=== PATIENT | male | born 1990 | race Two or more races ===

== ENCOUNTER 2024-09-30 14:20 | Emergency (ER) | payer BC, OTHER ==
[~2024-09-30] VITALS: Ht 182.9 cm; Wt 90.3 kg
[2024-09-30 14:20] VITALS: BP 139/82; TEMP 98.3
--- NOTE | 2024-09-30 14:31 | ECG ---
[facility] Test Date: 2024-09-30 Test Time: 14:26:55 Pat Name: LOLA PLUMMER Department: [facility] ED Patient ID: [id number] Room: Gender: M [employer] Operator: GP : 1990 Requested By: PAUL CACERES Order Number: [id number] Reading MD: Carlo Trammell Measurements Intervals [place] Rate: 65 P: 40 WI: 128 QRS: 66 QRSD: 83 T: 52 QT: 403 QTc: 419 Interpretive Statements Sinus rhythm Baseline wander in lead(s) II,III,aVF Electronically Signed On 10-02-2024 17:50:28 PDT by Carlo Trammell Please click the below link to view image of tracing.
--- NOTE | 2024-09-30 14:33 | ED.PDOC ---
HPI Comments 34 y.o male with PMHx of ADHD, presents to the ED for a chief complaint of left sided chest pain radiating to his left arm that started 20 minutes prior to arrival. Patient reports pain presented while driving, described as a tightness sensation that is constant. Patient initially had SOB but since has resolved on its own. He denies any other symptoms or pain. Time Seen by MD: 14:27 Reviewed Notes: Nurses Notes, Medications, Allergies Allergies: Coded Allergies: NO KNOWN ALLERGIES (Unverified , 09/30/24) Information Source: Patient Mode of Arrival: Ambulatory Severity: Moderate Timing: Minutes (20) Duration: Since onset Location: Chest (L) Radiation: Arm (L) Quality: Tightness Onset: At Rest Cardiac Risk Factors: Family History PE Risk Factors: None History of: None Modifying Factors: Nothing Associated Signs and Symptoms: SOB Past Medical History PAST MEDICAL HISTORY: Denies Past Medical History (Other): ADHD Surgical History: Denies all surgeries Family History Family History: Family hx of heart eileen Social History Smoker: Non-Smoker Alcohol: Occasionally Drugs: Denies Drug Use Lives In: Home Constitutional: denies: chills, diaphoresis, fatigue, fever, malaise, sweats, weakness, others EENTM: denies: blurred vision, double vision, ear bleeding, ear discharge, ear drainage, ear pain, ear ringing, eye pain, eye redness, hearing loss, mouth pain, mouth swelling, nasal discharge, nose bleeding, nose congestion, nose pain, photophobia, tearing, throat pain, throat swelling, voice changes, others Respiratory: reports: shortness of breath; denies: cough, hemoptysis, orthopnea, SOB at rest, SOB with excertion, stridor, wheezing, others Cardiovascular: reports: chest pain, left arm pain; denies: dizzy spells, diaphoresis, Dyspnea on exertion, edema, irregular heart beat, lightheadedness, palpitations, PND, syncope, others Gastrointestinal: denies: abdomen distended, abdominal pain, blood streaked bowels, constipated, diarrhea, dysphagia, difficulty swallowing, hematemesis, melena, nausea, poor appetite, poor fluid intake, rectal bleeding, rectal pain, vomiting, others Genitourinary: denies: burning, dysuria, flank pain, frequency, hematuria, incontinence, penile discharge, penile sore, pain, testicle pain, testicle swelling, urgency, others Neurological: denies: dizziness, fainting, headache, left sided numbness, left sided weakness, numbness, paresthesia, pre-existing deficit, right sided numbness, right sided weakness, seizure, speech problems, tingling, tremors, w eakness, others Musculoskeletal: denies: back pain, gout, joint pain, joint swelling, muscle pain, muscle stiffness, neck pain, others Integumetry: denies: bruises, change in color, change in hair/nails, dryness, laceration, lesions, lumps, rash, wounds, others Allergic/Immunocompromised: denies: Difficulty Healing, Frequent Infections, Hives, Itching, others Hematologic/Lymphatic: denies: anemia, blood clots, easy bleeding, easy bruising, swollen glands, others Endocrine: denies: excessive hunger, excessive sweating, excessive thirst, excessive urination, flushing, intolerance to cold, intolerance to heat, unexplained weight gain, unexplained weight loss, others Psychiatric: denies: anxiety, bipolar disorder, depression, hopeless, panic disorder, schizophrenia, sleepless, suicidal, others All Other Systems: Reviewed and Negative Physical Exam General Appearance: No Apparent Distress HEENT: Normal ENT Inspection, Pharynx Normal, TMs Normal Neck: Full Range of Motion, Non-Tender, Normal, Normal Inspection Respiratory: Chest Non-Tender, Lungs Clear, No Accessory Muscle Use, No Respiratory Distress, Normal Breath Sounds Cardiovascular: No Edema, No JVD, No Murmur, No Gallop, Normal Peripheral Pulses, Regular Rate/Rhythm Breast Exam: Deferred Gastrointestinal: No Organomegaly, Non Tender, No Pulsatile Mass, Normal Bowel Sounds, Soft Genitalia: Deferred Pelvic: Deferred Rectal: Deferred Extremities: No calf tenderness, Normal capillary refill, Normal inspection, Normal range of motion, Non-tender, No pedal edema Musculoskeletal : Apperance: Normal Neurologic: Alert, vegetable thinner II-XII nml as Tested, No Motor Deficits, Normal Affect, Normal Mood, No Sensory Deficits Cerebellar Function: Normal Reflexes: Normal Skin: Dry, Normal Color, Warm Lymphatic: No Adenopathy EKG EKG : Pulse Rate (adult): 65 [place]: Normal Cardiac Rhythm: NSR ST: Nonsp Was a procedure done? Was a procedure done?: No CP Differential Dx Differential Diagnosis: N/A Differential Diagnosis: Angina, Chest Wall Pain, Cholelithiasis, Costochondritis, Myocardial Infarction, Pericarditis X-Ray, Labs, Meds, VS Vital Signs Date Time Temp Pulse Resp B/P (MAP) Pulse Ox O2 Delivery O2 Flow Rate FiO2 09/30/24 15:59 18 98 Room Air* 0 21 09/30/24 15:54 68 09/30/24 14:33 65 09/30/24 14:26 65 09/30/24 14:20 98.3 77 16 139/82 (101) 98 98.3 09/30/24 14:20 98.3 77 16 139/82 (101) 98 98.3 Lab Test 09/30/24 15:29 09/30/24 15:20 09/30/24 14:38 Range/Units Troponin I High Sensitivity 3 L < 3 L </=54 ng/L Urine Color Light-yellow Yellow Urine Clarity Clear Clear Urine pH 7.5 5.0-9.0 Urine Specific [place] 1.016 1.001-1.035 Urine Protein Negative Negative Urine Ketones Negative Negative Urine Blood Negative Negative /uL Urine Nitrite Negative Negative Urine Bilirubin Negative Negative Urine Urobilinogen Normal Negative mg/dL Urine Leukocyte Esterase Negative Negative /uL Urine RBC <1 0 - 3 /hpf Urine Microscopic WBC < 1 0-3 /HPF Urine Squamous Epithelial Cells None seen <5 /hpf Urine Bacteria None seen None Seen /hpf Urine Glucose Normal Normal mg/dL Urine Opiates Screen Neg NEGATIVE Urine Fentanyl Screen Neg NEGATIVE Urine Barbiturates Screen Neg NEGATIVE Urine Phencyclidine Screen Neg NEGATIVE Urine Amphetamines Screen Neg NEGATIVE Urine Benzodiazepines Screen Neg NEGATIVE Urine Cocaine Screen Neg NEGATIVE Urine Cannabinoids Screen Neg NEGATIVE White Blood Count 6.2 4.4-10.8 10^3/uL Red Blood Count 5.06 4.5-5.90 10^6/uL Hemoglobin 15.5 13.5-17.5 g/dL Hematocrit 44.8 41.0-53.0 % Mean Corpuscular Volume 88.5 80.0-100.0 fL Mean Corpuscular Hemoglobin 30.6 28.0-32.0 pg Mean Corpuscular Hemoglobin Concent 34.6 32.0-36.0 g/dL Red Cell Distribution Width 13.0 11.8-14.3 % Platelet Count 236 140-450 10^3/uL Mean Platelet Volume 7.7 6.9-10.8 fL Neutrophils (%) (Auto) 54.0 37.0-80.0 % Lymphocytes (%) (Auto) 30.1 10.0-50.0 % Monocytes (%) (Auto) 12.0 0.0-12.0 % Eosinophils (%) (Auto) 3.3 0.0-7.0 % Basophils (%) (Auto) 0.6 0.0-2.0 % Neutrophils # (Auto) 3.3 1.6-8.6 10 ^3/uL Lymphocytes # (Auto) 1.9 0.4-5.4 10 ^3/uL Monocytes # (Auto) 0.7 0-1.3 10 ^3/uL Eosinophils # (Auto) 0.2 0-0.8 10 ^3/uL Basophils # (Auto) 0 0-0.2 10 ^3/uL Nucleated Red Blood Cells 0.1 % Sodium Level 141 136-145 mmol/L Potassium Level 3.8 3.5-5.1 mmol/L Chloride Level 104 98-107 mmol/L Carbon Dioxide Level 28 20-31 mmol/L Anion Gap 9 5-15 Blood Urea Nitrogen 11 9-23 mg/dL Creatinine 0.99 0.700-1.30 mg/dL Glomerular Filtration Rate Calc 104 >90 mL/min BUN/Creatinine Ratio 11.1 10.0-20.0 Serum Glucose 117 H 74-106 mg/dL Calcium Level 9.2 8.7-10.4 mg/dL Current Medications Medications (Trade) Dose Ordered Sig/Trevor Route Start Time Stop Time Status Last Admin Aspirin 162 mg ONCE ONCE PO 09/30/24 14:30 09/30/24 15:06 DC 09/30/24 16:00 XY CHEST TWO VIEWS ROUTINE, IMPRESSION: No acute intrathoracic abnormality. The patient's CBC is within normal limits The chemistry panel is within normal limits The patient's troponin level is negative The urine test is negative The urine tox is negative Prior to the patient being re-evaluated he has signed out AMA The patient understands the risk of leaving. Images Reviewed?: Images reviewed and evaluated by me Time of 1ST Reevaluation: 15:30 Reevaluation 1ST: Unchanged Patient Education/Counseling: Diagnosis, Treatment, Prognosis Family Education/Counseling: No Family Present SEPSIS Sepsis Screen Physician Orders Electrocardigram (09/30/24 15:29) Heplock Iv (09/30/24 14:30) Chest Two Views Routine (09/30/24 14:30) Vital Signs Date Time Temp Pulse Resp B/P (MAP) Pulse Ox O2 Delivery O2 Flow Rate FiO2 09/30/24 15:59 18 98 Room Air* 0 21 09/30/24 15:54 68 09/30/24 14:33 65 09/30/24 14:26 65 09/30/24 14:20 98.3 77 16 139/82 (101) 98 98.3 09/30/24 14:20 98.3 77 16 139/82 (101) 98 98.3 Laboratory Tests Test 09/30/24 14:38 White Blood Count 6.2 10^3/uL (4.4-10.8) Medications Medications Dose Ordered Sig/Trevor Route Start Time Stop Time Status Last Admin Dose Admin Aspirin 162 mg ONCE ONCE PO 09/30/24 14:30 09/30/24 15:06 DC 09/30/24 16:00 Departure 1 Departure Time of Disposition: 17:42 Impression: Primary Impression: Acute chest pain Disposition: LEFT AGAINST MEDICAL ADVICE Condition: Fair Critical Care Note Critical Care Time?: No Stability Stability form required: Yes Unstable for transfer: Telemetry monitoring (Telemetry monitoring required), ED Physician Assesment (Clinical assesment) Heart Score Heart Score: Heart Score Response (Comments) Value History Slightly Suspicious 0 EKG Normal 0 Age <45 0 Risk Factors No known risk factors 0 Troponin Normal limit 0 Total 0 I personally scribed for PAUL CACERES MD ([email or web address]) on 09/30/24 at 14:33. Electronically submitted by Madina Morales ([email or web address]). I personally scribed for PAUL CACERES MD ([email or web address]) on 09/30/24 at 16:04. Electronically submitted by Madina Morales ([facility]). PAUL CACERES MD Sep 30, 2024 14:33
[2024-09-30 14:51] LABS: Hematocrit 44.8 % (41.0-53.0); Hemoglobin 15.5 g/dL (13.5-17.5); Mean Corpuscular Hemoglobin 30.6 pg (28.0-32.0); Mean Corpuscular Volume 88.5 fL (80.0-100.0); Nucleated Red Blood Cells % 0.1 %
[2024-09-30 15:00] LABS: Chloride 104 mmol/L (98-107); Potassium 3.8 mmol/L (3.5-5.1); Sodium 141 mmol/L (136-145)
[2024-09-30 15:01] LABS: Anion Gap 9 (5-15); Calcium 9.2 mg/dL (8.7-10.4); Carbon Dioxide 28 mmol/L (20-31)
--- NOTE | 2024-09-30 15:05 | DVH ---
XY CHEST TWO VIEWS ROUTINE, HISTORY: CP COMPARISON: None None TECHNICAL DATA: 1 view of the chest was obtained. FINDINGS: Lines and tubes: None Cardiomediastinal silhouette: normal Pulmonary vasculature: normal Lung expansion: normal Lung airspace: normal Lung interstitium: normal Pleura: normal Pneumothorax: no Bones: Unremarkable Other: no IMPRESSION: No acute intrathoracic abnormality.
[2024-09-30 15:06] LABS: BUN/Creatinine Ratio 11.1 (10.0-20.0); Blood Urea Nitrogen 11 mg/dL (9-23)
[2024-09-30 15:08] LABS: Glucose 117 mg/dL (74-106)
[2024-09-30 15:50] LABS: Urine Protein, UAD Negative (Negative)
[2024-09-30 15:54] VITALS: PULSE 68
[2024-09-30 15:59] VITALS: RESP 18; O2SAT 98
[2024-09-30 15:59] LABS: Amphetamine Screen, Urine Neg (NEGATIVE); Barbiturate Scree,Urine Neg (NEGATIVE); Benzodiazephine Screen, Urine Neg (NEGATIVE); Cannabinoid Screen, Urine Neg (NEGATIVE); Cocaine Screen, Urine Neg (NEGATIVE); Opiate Scree,Urine Neg (NEGATIVE); Phencyclidine Screen, Urine Neg (NEGATIVE)
--- NOTE | 2024-09-30 19:13 | ECG ---
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
== END 2024-09-30 17:14 | disposition left against medical advice (07) ==
LOC: ER 14:27
DX: R07.89 Other chest pain (principal); F10.90 Alcohol use, unspecified, uncomplicated; Y90.9 Presence of alcohol in blood, level not specified
CPT/HCPCS: 36415; 71046; 80048; 80307; 81001; 84484; 85025; 93005